=== PATIENT | male | born 1985 | race African-American/Black ===

== ENCOUNTER 2020-01-05 20:09 | Emergency (ER) | payer MEDICAID ==
[~2020-01-05] VITALS: Ht 188 cm; Wt 95.0 kg
[2020-01-06] MEDS ORDERED: ACETAMINOPHEN 500MG TABLET PO ONE (00:15)
[2020-01-06 01:50] VITALS: BP 134/78
== END 2020-01-06 01:50 | disposition home or self-care (01) ==
LOC: ER 20:17
DX: S06.0X9A Concussion with loss of consciousness of unspecified duration, initial encounter (principal); S13.4XXA Sprain of ligaments of cervical spine, initial encounter; S39.012A Strain of muscle, fascia and tendon of lower back, initial encounter; G40.909 Epilepsy, unspecified, not intractable, without status epilepticus; Z91.013 Allergy to seafood; V43.52XA Car driver injured in collision with other type car in traffic accident, initial encounter; W22.11XA Striking against or struck by driver side automobile airbag, initial encounter; Y93.89 Activity, other specified; Y92.488 Other paved roadways as the place of occurrence of the external cause
CPT/HCPCS: 72128; 99285

== ENCOUNTER 2021-11-08 14:42 | Emergency (ER) | payer MEDICAID, MEDICARE ==
[~2021-11-08] VITALS: Ht 188 cm; Wt 98.0 kg
[2021-11-08 14:47] VITALS: BP 115/70
[2021-11-08] MEDS ORDERED: IBUP-2030 MT (17:30)
== END 2021-11-08 17:50 | disposition home or self-care (01) ==
LOC: ER 14:42
DX: M71.21 Synovial cyst of popliteal space [Baker], right knee (principal); G40.909 Epilepsy, unspecified, not intractable, without status epilepticus; Z90.49 Acquired absence of other specified parts of digestive tract; Z87.828 Personal history of other (healed) physical injury and trauma
CPT/HCPCS: 93971; 99284

== ENCOUNTER 2022-03-19 23:22 | Emergency (ER) | payer MEDICAID ==
[~2022-03-19 23:22] MED LIST: IBUP-2030 MT
[2022-03-20] MEDS ORDERED: IBUP-2029 MT (03:24)
== END 2022-03-20 00:28 | disposition left against medical advice (07) ==
LOC: ER 23:22
DX: Z53.21 Procedure and treatment not carried out due to patient leaving prior to being seen by health care provider (principal)

== ENCOUNTER 2022-03-20 02:40 | Emergency (ER) | payer MEDICAID ==
[~2022-03-20] VITALS: Ht 188 cm; Wt 98.0 kg
[2022-03-20 02:49] VITALS: BP 131/53
[2022-03-20] MEDS ORDERED: IBUP-2029 MT (03:24)
[2022-03-20] MEDS ORDERED: IBUPROFEN 600MG TABLET PO ONE (03:30)
== END 2022-03-20 03:45 | disposition home or self-care (01) ==
LOC: ER 02:40
DX: M25.562 Pain in left knee (principal); Z86.59 Personal history of other mental and behavioral disorders; Z90.49 Acquired absence of other specified parts of digestive tract; Z98.890 Other specified postprocedural states
CPT/HCPCS: 99282

== ENCOUNTER 2024-11-14 09:41 | Emergency (ER) | payer MEDICAID, OTHER ==
[~2024-11-14] VITALS: Ht 175.3 cm; Wt 91.0 kg
[~2024-11-14 09:41] MED LIST changes: +IBUP-2029 MT
[2024-11-14 09:47] VITALS: O2SAT 99
[2024-11-14] MEDS: KETOROLAC 30MG/ML VIAL IM STA (10:30)
[2024-11-14] MEDS: ACETAMINOPHEN 325MG TABLET PO STA (10:30)
[2024-11-14] MEDS: LIDOCAINE 5% PATCH TOP SCH (10:30)
[2024-11-14 10:34] VITALS: PULSE 55; TEMP 37; O2SAT 99
[2024-11-14 10:34] LABS: BASOPHILS % 0.7 % (0.0-2.0); EOSINOPHILS % 1.9 % (0.0-5.0); HEMATOCRIT. 45.2 % (42.0-52.0); HEMOGLOBIN. 15.3 g/dL (14.0-18.0); LYMPHOCYTES % 33.4 % (20.0-50.0); MEAN CORPUSCULAR HEMOGLOBIN 30.2 pg (28.0-32.0); MEAN CORPUSCULAR HGB CONC 33.9 g/dL (31.0-37.0); MEAN CORPUSCULAR VOLUME 89.1 fL (80.0-94.0); MONOCYTES % 10.5 % (2.0-8.0); NEUTROPHILS % 53.5 % (40.0-76.0); PLATELET 271 x1000/uL (130-400); RED BLOOD CELL COUNT 5.07 mill/uL (4.7-6.1); RED CELL DISTRIBUTION WIDTH 13.6 % (11.6-14.6); WHITE BLOOD COUNT 6.5 x1000/uL (4.5-11.0)
[2024-11-14 10:46] LABS: CARBON DIOXIDE 28 mEq/L (21-32); CHLORIDE 108 mEq/L (98-107); POTASSIUM 4.1 mEq/L (3.5-5.1); SODIUM 142 mEq/L (136-145)
[2024-11-14 10:47] LABS: CALCIUM 9.4 mg/dL (8.7-10.4)
[2024-11-14 10:52] LABS: GLUCOSE 95 mg/dL (70-105); UREA NITROGEN BLOOD 10 mg/dL (9-23)
[2024-11-14 10:53] LABS: ALANINE AMINOTRANSFERASE 16 IU/L (10-49); ALBUMIN 4.3 g/dL (3.2-4.8); ASPARTATE AMINOTRANSFERASE 15 IU/L (<34)
[2024-11-14 10:54] LABS: BILIRUBIN DIRECT 0.4 mg/dL (<=3.0); BILIRUBIN TOTAL 1.4 mg/dL (0.1-1.0); PROTEIN TOTAL 7.3 g/dL (6.0-8.3)
[2024-11-14] MEDS ORDERED: LIDO700A30 TP (11:17)
[2024-11-14 11:21] VITALS: BP 111/52; RESP 16
== END 2024-11-14 11:27 | disposition home or self-care (01) ==
LOC: ER 09:41
DX: M54.50 Low back pain, unspecified (principal); Z90.49 Acquired absence of other specified parts of digestive tract; Z79.899 Other long term (current) drug therapy
CPT/HCPCS: 99285; 74176; 80076; 80048; 83690; 85025; 36415; 96372; J1885

== ENCOUNTER 2025-03-18 01:09 | Emergency (ER) | payer OTHER ==
[~2025-03-18] VITALS: Ht 182.9 cm; Wt 96.0 kg
[~2025-03-18 01:09] MED LIST changes: +LIDO700A30 TP
[2025-03-18 01:17] VITALS: BP 140/80; PULSE 88; RESP 16; TEMP 36.7; O2SAT 99
[2025-03-18] MEDS: ACETAMINOPHEN 325MG TABLET PO ONE (01:45)
== END 2025-03-18 03:53 ==
LOC: ER 01:18
DX: S80.212A Abrasion, left knee, initial encounter (principal); S80.211A Abrasion, right knee, initial encounter; S60.511A Abrasion of right hand, initial encounter; S60.512A Abrasion of left hand, initial encounter; R51.9 Headache, unspecified; Z90.49 Acquired absence of other specified parts of digestive tract; X58.XXXA Exposure to other specified factors, initial encounter; Y93.89 Activity, other specified; Y92.89 Other specified places as the place of occurrence of the external cause; Y99.8 Other external cause status
CPT/HCPCS: 73130; 73560; 99284

== ENCOUNTER 2025-07-19 18:10 | Emergency (ER) | payer OTHER ==
[~2025-07-19] VITALS: Ht 188 cm; Wt 92.0 kg
[~2025-07-19 18:10] MED LIST changes: +IBUP-1455 MT; -IBUP-2029 MT
[2025-07-19 18:22] VITALS: TEMP 36.7; O2SAT 98
[2025-07-19 21:32] LABS: CLARITY URINE CLEAR (CLEAR); COLOR URINE ORANGE (YELLOW); GLUCOSE URINE NEGATIVE (NEGATIVE); KETONES URINE NEGATIVE (NEGATIVE); LEUKOCYTE ESTERASE URINE 2+ (NEGATIVE); NITRITE URINE POSITIVE (NEGATIVE); OCCULT BLOOD URINE NEGATIVE (NEGATIVE); PH URINE 5.5 (4.5-8.0); PROTEIN URINE 1+ (NEGATIVE); SPECIFIC GRAVITY URINE 1.031 (1.005-1.030); UROBILINOGEN URINE 1.0 E.U./dL (0.2-1.0)
[2025-07-19 21:47] VITALS: BP_SYST 115
[2025-07-19] MEDS: KETOROLAC 15MG/ML VIAL IM ONE (21:47)
[2025-07-19] MEDS: LIDOCAINE 5% PATCH TOP SCH (21:47)
[2025-07-19 22:36] LABS: BACTERIA URINE TRACE; RBC URINE NONE SEEN /hpf (0-2); SQUAMOUS EPITHELIAL CELL URINE FEW /lpf (RARE/1+); WBC URINE 0-2 /hpf (0-2)
[2025-07-19] MEDS ORDERED: CEPH500C2 MT (23:01)
[2025-07-19] MEDS ORDERED: DOXY100C5 MT (23:01)
[2025-07-19] MEDS: CEFTRIAXONE SODIUM 500MG VIAL IM ONE (23:21)
[2025-07-19 23:29] VITALS: BP_DIAS 110; PULSE 58; RESP 16; O2SAT 99
[2025-07-22 05:10] LABS: CHLAMYDIA TRACHOMATIS NAA Negative (Negative); NEISSERIA GONORRHOEAE NAA Negative (Negative)
== END 2025-07-19 23:34 | disposition home or self-care (01) ==
LOC: ER 18:10
DX: N39.0 Urinary tract infection, site not specified (principal); Z11.3 Encounter for screening for infections with a predominantly sexual mode of transmission; Z90.49 Acquired absence of other specified parts of digestive tract; Z91.013 Allergy to seafood
CPT/HCPCS: 99284; 87491; 87591; 81003; J1885; J0696